=== PATIENT | male | born 1995 | race Caucasian/White ===

== ENCOUNTER 2017-05-08 22:52 | Emergency (ER) | payer BC ==
[2017-05-08 23:03] VITALS: BP 147/90
--- NOTE | 2017-05-08 23:23 | ERNOTE ---
Abdominal HPI - Narrative Date of Service: 05/08/17 - General Chief Complaint: Abdominal Pain Time Seen by Provider: 05/08/17 23:08 Source: patient - Immun/Allergies/Home Medications Immunizatons: IMMUNIZATION HX Immunizations Up to Date Yes Home Medications: HOME MEDICATIONS HYDROcodone/ACETAMINOPHEN [Lometa 5-325] 1 each PO Q4H PRN #20 tablet 05/09/17 [ Last Taken Unknown] - History of Present Illness Narrative: This is a 21-year-old male who comes to the emergency department with rather sudden onset of right lower quadrant abdominal pain which she describes as sharp. The pain did radiate to his back. He had no radiation into the testicle or down the leg. He did have nausea but no vomiting bowels have been moving normally he denies any hematuria or dysuria patient has never had symptoms like this before. The pain was so bad that he felt he needed to come to the hospital. However about 10 minutes before arriving in the ER if the pain got much better. Of importance, the patient's father has multiple kidney stones. The patient has never had a kidney stone that he is aware of. No fever or chills Review of Systems - Review of Systems Constitutional: Present: no symptoms reported EYE: Present: no symptoms reported ENT: Present: no symptoms reported Respiratory: Present: no symptoms reported Cardiology: Present: no symptoms reported Gastrointestinal/Abdominal: Present: nausea, abdominal pain Genitourinary: Present: no symptoms reported Musculoskeletal: Present: no symptoms reported Skin: Present: no symptoms reported Neurological: Present: no symptoms reported Endocrine: Present: no symptoms reported Hematologic/Lymphatic: Present: no symptoms reported Psych: Present: no symptoms reported All Other Systems: All systems neg except as marked - Patient's Past Medical History Patient History - Medical: No pertinent hx Patient History - Cardiac/Respiratory: No pertinent hx Patient History - Cancer: No Hx of Cancer Patient History - Surgical Procedures: Orthopedic Patient History - Other: None - Social History Living Situations: home Psych History: No pertinent hx Smoking Status: Never smoker Alcohol Use: occasionally Drug Use: none - Immunizations Immunizations Up to Date: Yes Physical Exam - Physical Exam General Appearance: Present: wd/wn, alert, no apparent distress Head Exam: Present: normal inspection, no evidence of injury Eye Exam: Normal inspection: bilateral Ears, Nose, Throat: Present: normal ENT inspection, normal pharynx Neck: Present: normal inspection, nontender Respiratory: Present: no respiratory distress, normal breath sounds, chest nontender, lungs clear Cardiovascular/Chest: Present: regular rate, rhythm, no murmur Gastrointestinal/Abdominal: Present: normal bowel sounds, nontender, nondistended, soft, other - patient has no pain at McBurney's point. No rebound no guarding soft abdomen Extremity Exam: Present: normal inspection, non-tender, normal range of motion, no edema Neurological Exam: Present: alert, oriented, normal mood/affect Skin Exam: Present: normal color, warm/dry Lymphatic Exam: Present: no adenopathy ED Progress - Results and Orders Patient's Lab Results:: I have reviewed the patient's lab results. - Vital Signs Patient's Vital Signs:: I have reviewed the patient's vital signs. Vital Signs: Vital Signs 05/08/17 22:58 Temperature 36.9 C Pulse Rate 86 Respiratory 18 Rate Blood Pressure 147/90 O2 Sat by Pulse 97 Oximetry - CT/Ultrasound CT/Ultrasound Narrative: EKG demonstrates a 4 mm proximal right ureteral stone with mild hydronephrosis and hydroureter - Progress/Reassessment Chief Complaint: Abdominal Pain Progress:: Improved Progress Note-Subjective: 05/09/17 00:06 Patient says that the pain is starting to come back a bit Departure Clinical Impression: Renal calculi - Departure Disposition: Home self-care Condition: Stable Instructions: Kidney Stones, [id number] Additional Instructions: As we discussed U have a kidney stone. It is small enough that it should pass. He may have several more episodes of severe pain. He should take the prescribed Flomax to help relax the tube to let the stone passed. Take the prescribed Lometa for severe pain. No operating machinery or driving while taking the pain medicine. Call a urologist and set up a follow-up appointment. Strain your urine and take anything which looks like a piece of sand with you to the urologist follow-up. Call your family doctor and set up a follow-up pointed. Return to the ER for new concerning symptoms Prescriptions: HYDROcodone/ACETAMINOPHEN [Lometa 5-325] 1 each PO Q4H PRN #20 tablet PRN Reason: Pain
[2017-05-08 23:25] LABS: Urine Bilirubin Negative (NEGATIVE); Urine Blood 250 /ul (NEGATIVE); Urine Ketone Negative (NEGATIVE); Urine Nitrite Negative (NEGATIVE); Urine Protein Negative (NEGATIVE); Urine Specific Gravity >=1.030 SP.GR. (1.005-1.030); Urine Urobilinogen Normal (NORMAL)
[2017-05-08 23:35] LABS: Urine Appearance Clear; Urine Bacteria None Seen; Urine Color Yellow; Urine RBC >50 /hpf (0-5); Urine WBC None Seen /hpf (0-5)
[2017-05-09] MEDS ORDERED: KETOROLAC TROMETHAMINE 30 MG/ML VIAL ONE (00:04)
[2017-05-09] MEDS ORDERED: HYDROcodone/ACETAMINOPHEN 1 EACH TABLET ONE (00:05)
[2017-05-09] MEDS ORDERED: KETOROLAC TROMETHAMINE 30 MG/ML VIAL IM ONE (00:05)
[2017-05-09] MEDS ORDERED: HYDROcodone/ACETAMINOPHEN 1 EACH TABLET PO ONE (00:05)
== END 2017-05-09 00:16 | disposition home or self-care (01) ==
LOC: ER 22:52
DX: N20.0 Calculus of kidney (principal)